=== PATIENT | male | born 1980 | race Caucasian/White ===

== ENCOUNTER 2022-10-25 20:31 | Inpatient (IN) | payer OTHER ==
[~2022-10-25] VITALS: Ht 170.2 cm; Wt 95.5 kg
[2022-10-25 22:58] LABS: ANION GAP 13 mmol/L (8-16); CALCIUM, TOTAL 8.8 mg/dL (8.8-10.5); CARBON DIOXIDE 20 mmol/L (22-29); CHLORIDE 100 mmol/L (98-107); CREATININE 0.85 mg/dL (0.60-1.30); GLOMERULAR FILTR. RATE CALC > 60 mL/min (>60); GLUCOSE,RANDOM 98 mg/dL (70-110); POTASSIUM 3.5 mmol/L (3.5-5.1); SODIUM SERUM 133 mmol/L (136-145); UREA NITROGEN, BLOOD 15 mg/dL (7-18)
[2022-10-25 23:04] LABS: ALANINE AMINOTRANSFERASE 62 U/L (12-78); ALBUMIN 3.6 g/dL (3.4-5.0); ALKALINE PHOSPHATASE 96 U/L (46-116); ASPARTATE AMINOTRANSFERASE 56 U/L (15-37); TOTAL PROTEIN, SERUM 7.3 g/dL (6.4-8.2)
[2022-10-25 23:05] LABS: BASOPHILS % (AUTO) 0.5 % (0.0-2.0); EOSINOPHILS % (AUTO) 1.1 % (1.0-6.0); HEMATOCRIT 40.1 % (41-53); HEMOGLOBIN 13.3 g/dL (13.5-17.5); LYMPHOCYTES # (AUTO) 4.6 K/uL (1.0-4.8); LYMPHOCYTES % (AUTO) 55.4 % (22.0-44.0); MEAN CORPUSCULAR HEMOGLOBIN 28.8 pg (26.0-34.0); MEAN CORPUSCULAR HGB CONC 33.1 G/dL (31.0-37.0); MEAN CORPUSCULAR VOLUME 87 fL (80-100); MONOCYTES # (AUTO) 0.6 K/uL (0.1-1.0); MONOCYTES % (AUTO) 7.4 % (2.0-9.0); NEUTROPHILS % (AUTO) 35.6 % (40.0-70.0); PLATELET COUNT (AUTO) 152 K/uL (150-450); RED BLOOD CELL COUNT(AUTO) 4.62 MIL/uL (4.50-5.90); RED CELL DISTRIBUTION WIDTH 13.9 % (11.5-14.5)
[2022-10-25 23:24] LABS: COVID AG,FIA SOURCE NASOPHARYNGEAL
[2022-10-25] MEDS ORDERED: ONDANSETRON HCL 4 MG/2 ML VIAL IVP PRN (23:45)
[2022-10-25] MEDS ORDERED: ACETAMINOPHEN 325 MG TABLET PO PRN (23:45)
[2022-10-25] MEDS ORDERED: 0.9% SODIUM CHLORIDE 10 ML SYRINGE IVP PRN (23:45)
[2022-10-26 00:19] VITALS: BP 95/57
[2022-10-26 06:13] VITALS: BP 100/55
[2022-10-26] MEDS ORDERED: MAGNESIUM HYDROXIDE SUSPENSION 30 ML UDCUP PO PRN (07:45)
[2022-10-26] MEDS ORDERED: ACETAMINOPHEN 325 MG TABLET PO PRN (07:45)
[2022-10-26 08:04] VITALS: BP 94/59
[2022-10-26 08:06] VITALS: BP 94/59
[2022-10-26] MEDS: FAMOTIDINE 20 MG TABLET PO SCH (08:52)
[2022-10-26] MEDS ORDERED: SODIUM CHLORIDE 0.9% 1,000 ML IV ONE (10:30)
[2022-10-26 11:12] LABS: AMPHET/METH SCREEN,URINE POSITIVE (NEGATIVE); BARBITURATE SCREEN, URINE NEGATIVE (NEGATIVE); BENZODIAZEPINES SCREEN,URINE NEGATIVE (NEGATIVE); CANNABINOID SCREEN,URINE POSITIVE (NEGATIVE); COCAINE SCREEN,URINE NEGATIVE (NEGATIVE); METHADONE SCREEN, URINE NEGATIVE (NEGATIVE); OPIATE SCREEN,URINE NEGATIVE (NEGATIVE); PHENCYCLIDINE SCREEN,URINE NEGATIVE (NEGATIVE)
[2022-10-26 20:40] VITALS: BP 101/60
[2022-10-27 05:47] VITALS: BP 103/58
[2022-10-27 08:16] VITALS: BP 109/69
[2022-10-27] MEDS: FAMOTIDINE 20 MG TABLET PO SCH (08:34)
[2022-10-27] MEDS ORDERED: SERTRALINE HCL 50 MG TABLET PO SCH (12:00)
[2022-10-27 20:15] VITALS: BP 113/70
[2022-10-27] MEDS: ZOLPIDEM TARTRATE 5 MG TABLET PO PRN (21:59)
[2022-10-28 05:13] VITALS: BP 109/66
[2022-10-28] MEDS: FAMOTIDINE 20 MG TABLET PO SCH (08:05)
[2022-10-28] MEDS: SERTRALINE HCL 50 MG TABLET PO SCH (11:51)
[2022-10-28 19:45] VITALS: BP 110/76
[2022-10-28] MEDS: ZOLPIDEM TARTRATE 5 MG TABLET PO PRN (21:45)
[2022-10-29 04:15] VITALS: BP 97/64
[2022-10-29] MEDS: FAMOTIDINE 20 MG TABLET PO SCH (07:51)
[2022-10-29 08:01] VITALS: BP 102/65
[2022-10-29] MEDS: SERTRALINE HCL 50 MG TABLET PO SCH (12:00)
[2022-10-29 19:40] VITALS: BP 109/59
[2022-10-30 04:35] VITALS: BP 95/60
[2022-10-30 07:36] VITALS: BP 120/72
[2022-10-30] MEDS: FAMOTIDINE 20 MG TABLET PO SCH (09:00)
[2022-10-30 10:22] LABS: COVID AG,FIA SOURCE NASAL SWAB
[2022-10-30] MEDS ORDERED: SERT-158 PO ×2 (11:26→11:27)
[2022-10-30] MEDS ORDERED: ACET-784 PO (11:27)
[2022-10-30] MEDS ORDERED: MAGN-169 PO (11:28)
[2022-10-30] MEDS: SERTRALINE HCL 50 MG TABLET PO SCH (12:00)
[2022-10-30 16:11] VITALS: BP 102/52
== END 2022-10-30 18:00 | DRG 885 ==
LOC: EMS 20:32 → 6S 10-26 00:06
PROVIDERS: ADMIT Internal Medicine; ATTEND Internal Medicine
PROC: HZ34ZZZ Individual Counseling for Substance Abuse Treatment, Interpersonal (ICD-10-PCS; principal; 2022-10-26)
DX: F33.1 Major depressive disorder, recurrent, moderate (principal); R45.851 Suicidal ideations; F15.10 Other stimulant abuse, uncomplicated; F12.10 Cannabis abuse, uncomplicated; Z20.822 Contact with and (suspected) exposure to COVID-19; E66.9 Obesity, unspecified; Z68.33 Body mass index [BMI] 33.0-33.9, adult; Z91.199 Patient's noncompliance with other medical treatment and regimen due to unspecified reason
CPT/HCPCS: 80053; 80307; 85025; 99285; G0480; J7030